=== PATIENT | male | born 1980 | race Caucasian/White ===

== ENCOUNTER → 2019-06-23 | Outpatient (CLI) | payer BC | LOC: GMAE 14:57 | PROVIDERS: ATTEND Family Medicine | DX: R10.13 Epigastric pain (principal) ==

== ENCOUNTER → 2019-06-24 | Outpatient (CLI) | payer BC ==
--- NOTE | 2019-06-24 13:45 | CT ---
EXAM DESCRIPTION: Abdomen/Pelvis w/wo Contrast: Computed Tomography. CLINICAL HISTORY: R19.03 COMPARISON: Radiographs of the abdomen and chest 06/23/2019. TECHNIQUE: Spiral-axial scans at 5 x 5 mm intervals through the abdomen and pelvis before and after Optiray 320 nonionic IV contrast. No oral contrast. Coronal and sagittal 2.0 mm reconstructions. 5 mm Delayed helical-axial scans, liver through the pubic symphysis. No adverse reactions. Total Exam DLP 3401.43 mGy - cm. This exam was performed according to our departmental CT dose-optimization program which includes automated exposure control, adjustment of the mA and/or kV according to patient size and/or use of iterative reconstruction technique; to reduce radiation dose to as low as reasonably achievable (ALARA). FINDINGS: Lung bases and pleura: Negative. Liver, Stomach, Spleen, Adrenal Glands: Unremarkable. Pancreas, Gallbladder, Ducts: Gallbladder was visualized. Otherwise negative. Kidneys and Ureters: Unremarkable. Mesentery: Fluid in the cul-de-sac. No ascites or free air. Aorta: Negative. Small Bowel: Distended with fluid and mild air-fluid levels, more proximal than distal, with distal ileum normal caliber but still containing fluid the transition point is in the anterior mid pelvis, to the right of midline on CT series 4, images 72-78. PT axial series #6, images 76-79. No extrinsic mass is seen. Terminal Ileum/Cecum: Normal caliber. Fluid in the cecum. Normal caliber of the appendix containing gas. No fatty inflammatory changes. Colon: Minimal fecal matter distributed throughout the colon. Mild to moderate redundancy of the sigmoid colon with no complications. Pelvic Organs: Vaginal cuff is negative. Urinary bladder with no radiodense stones are not well distended. Fluid in the cul-de-sac. Ovaries are not seen. Spine and Bony Pelvis: Mild anterior wedging of the T11 and T12 vertebral bodies with spondylosis. Spondylosis L4-L5 with gas formation in the disc space and Schmorl's node inferior L4. Also minimal spondylosis L5-S1. Abdominal Wall/Back Soft Tissues: Negative. IMPRESSION: 1. Minimal distention of the jejunum with air-fluid levels. Transition point in the right lower quadrant, mid ileum to nondistended fluid-filled segments of ileum. Terminal ileum unremarkable. No mechanical obstruction visualized. Most likely a viral enteritis. No mass in the peritoneum or retroperitoneum. No free air. 2. Minimal fluid in the cul-de-sac. Vaginal cuff unremarkable. Ovaries not seen. Electronically signed by: Damon Shirley MD 06/24/2019 1:43 PM CDT
== END ==
LOC: CT 10:44
PROVIDERS: ATTEND Family Medicine
DX: R10.13 Epigastric pain (principal); R19.03 Right lower quadrant abdominal swelling, mass and lump